=== PATIENT | female | born 1975 | race Caucasian/White ===

== ENCOUNTER → 2016-12-25 | Outpatient (CLI) | payer BC ==
--- NOTE | 2016-12-25 10:25 | XR ---
EXAMINATION TYPE: XR chest 2V DATE OF EXAM: 12/25/2016 COMPARISON: 12/24/2015 TECHNIQUE: PA and lateral views submitted. HISTORY: History of breast cancer FINDINGS: The lungs are clear and there is no pneumothorax, pleural effusion, or focal pneumonia. Biapical pl eural thickening. IMPRESSION: 1. No acute process.
--- NOTE | 2016-12-25 11:19 | MM ---
Reason for exam: additional evaluation requested from prior study. Last mammogram was performed 1 year ago. History: Patient has history of breast cancer at age 37 and is nulliparous. Implant in the right breast, March 2014. Mastectomy of the right breast, 2013. Malignant US RT VAD breast biopsy of the right breast, October 27, 2012. Malignant US RT VAD breast biopsy of the right breast, October 27, 2012. Malignant US RT VAD breast biopsy of the right breast, October 27, 2012. Malignant US RT VAD breast biopsy of the right breast, October 27, 2012. Taking antineoplastic for 1 year. Taking other hormone for 6 months beginning at age 38. Physical Findings: Nurse did not find any significant physical abnormalities on exam. MG 3D Diag Mammo W/Cad LT CC and MLO view(s) were taken of the left breast. Prior study comparison: December 24, 2015, left breast MG 3d diag mammo w/cad LT. December 21, 2014, left breast MG diagnostic mammo LT w CAD. The breast tissue is heterogeneously dense. This may lower the sensitivity of mammography. No suspicious abnormality. No significant new findings when compared with previous films. These results were verbally communicated with the patient and result sheet given to the patient on 12/25/16. ASSESSMENT: Negative, BI-RAD 1 RECOMMENDATION: Follow-up diagnostic mammogram of the left breast in 1 year.
== END | disposition home or self-care (01) ==
LOC: RADMAMWWP 10:08
PROVIDERS: ATTEND Internal Medicine Hematology & Oncology
DX: Z08 Encounter for follow-up examination after completed treatment for malignant neoplasm (principal); Z85.3 Personal history of malignant neoplasm of breast
CPT/HCPCS: 71020; G0206; G0279

== ENCOUNTER → 2017-12-28 | Outpatient (CLI) | payer BC ==
--- NOTE | 2017-12-28 11:36 | MM ---
Reason for exam: additional evaluation requested from prior study. Last mammogram was performed 1 year ago. History: Patient has history of breast cancer at age 37 and is nulliparous. Implant in the right breast, March 2014. Mastectomy of the right breast, 2013. Malignant US RT VAD breast biopsy of the right breast, October 27, 2012. Malignant US RT VAD breast biopsy of the right breast, October 27, 2012. Malignant US RT VAD breast biopsy of the right breast, October 27, 2012. Malignant US RT VAD breast biopsy of the right breast, October 27, 2012. Taking antineoplastic for 1 year. Taking other hormone for 6 months beginning at age 38. Physical Findings: Nurse did not find any significant physical abnormalities on exam. MG 3D Diag Mammo W/Cad LT CC, MLO, ML, and XCCL view(s) were taken of the left breast. Prior study comparison: December 25, 2016, left breast MG 3d diag mammo w/cad LT. December 24, 2015, left breast MG 3d diag mammo w/cad LT. The breast tissue is heterogeneously dense. This may lower the sensitivity of mammography. Asymmetric breast tissue left posterior outer aspect, stable. There is no discrete abnormality. These results were verbally communicated with the patient and result sheet given to the patient on 12/28/17. ASSESSMENT: Benign, BI-RAD 2 RECOMMENDATION: Follow-up diagnostic mammogram of the left breast in 1 year.
== END | disposition home or self-care (01) ==
LOC: RADMAMWWP 10:35
PROVIDERS: ATTEND Internal Medicine Hematology & Oncology
DX: Z08 Encounter for follow-up examination after completed treatment for malignant neoplasm (principal); Z85.3 Personal history of malignant neoplasm of breast
CPT/HCPCS: 77061; 77065

== ENCOUNTER → 2017-12-28 | Outpatient (CLI) | payer BC ==
--- NOTE | 2017-12-28 11:21 | XR ---
EXAMINATION TYPE: XR chest 2V DATE OF EXAM: 12/28/2017 COMPARISON: Prior chest x-ray 12/25/2016 HISTORY: Breast carcinoma TECHNIQUE: Frontal and lateral views of the chest are obtained. FINDINGS: Interval right breast reconstruction change is present. No evident pneumothorax or pleural effusion. Bone mineralization is stable. Cardiomediastinal silhouette, pulmonary vascularity and hil a are unchanged. No airspace disease. Biapical pleural thickening is stable. IMPRESSION: No acute cardiopulmonary process.
== END | disposition home or self-care (01) ==
LOC: RADXRMAIN 10:19
PROVIDERS: ATTEND Internal Medicine Hematology & Oncology
DX: C50.111 Malignant neoplasm of central portion of right female breast (principal); Z17.0 Estrogen receptor positive status [ER+]; N95.8 Other specified menopausal and perimenopausal disorders; Z71.3 Dietary counseling and surveillance
CPT/HCPCS: 71046

== ENCOUNTER → 2018-12-29 | Outpatient (CLI) | payer BC ==
--- NOTE | 2018-12-29 11:07 | XR ---
EXAMINATION TYPE: XR chest 2V DATE OF EXAM: 12/29/2018 COMPARISON: 12/28/2017 TECHNIQUE: PA and lateral views submitted. HISTORY: Breast cancer follow FINDINGS: The lungs are clear and there is no pneumothorax, pleural effusion, or focal pneumonia. Postsurgica l change involving the breast. Biapical pleural stable. IMPRESSION: 1. No acute process.
--- NOTE | 2018-12-30 08:39 | MM ---
Reason for exam: additional evaluation requested from prior study. Last mammogram was performed 1 year ago. History: Patient has history of breast cancer at age 37 and is nulliparous. Breast lift of the left breast, February 2018. Implant in the right breast, March 2014. Mastectomy of the right breast, 2013. Malignant US RT VAD breast biopsy of the right breast, October 27, 2012. Malignant US RT VAD breast biopsy of the right breast, October 27, 2012. Malignant US RT VAD breast biopsy of the right breast, October 27, 2012. Malignant US RT VAD breast biopsy of the right breast, October 27, 2012. Taking antineoplastic for 1 year beginning at age 37. Physical Findings: Nurse did not find any significant physical abnormalities on exam. MG 3D Diag Mammo W/Cad LT CC, MLO, ML, and XCCL view(s) were taken of the left breast. Prior study comparison: December 28, 2017, left breast MG 3d diag mammo w/cad LT. December 25, 2016, left breast MG 3d diag mammo w/cad LT. The breast tissue is heterogeneously dense. This may lower the sensitivity of mammography. No significant new findings when compared with previous films. These results were verbally communicated with the patient and result sheet given to the patient on 12/29/18. ASSESSMENT: Benign, BI-RAD 2 RECOMMENDATION: Follow-up diagnostic mammogram of the left breast in 1 year.
== END | disposition home or self-care (01) ==
LOC: RADMAMWWP 10:34
PROVIDERS: ATTEND Internal Medicine Hematology & Oncology
DX: Z08 Encounter for follow-up examination after completed treatment for malignant neoplasm (principal); N95.8 Other specified menopausal and perimenopausal disorders; Z71.3 Dietary counseling and surveillance; Z85.3 Personal history of malignant neoplasm of breast
CPT/HCPCS: 71046; 77061; 77065

== ENCOUNTER → 2020-01-09 | Outpatient (CLI) | payer BC ==
--- NOTE | 2020-01-09 11:17 | MM ---
Reason for exam: additional evaluation requested from prior study. Last mammogram was performed 1 year ago. History: Patient has history of breast cancer at age 37 and is nulliparous. Breast lift of the left breast, February 2018. Implant in the right breast, March 2014. Mastectomy of the right breast, 2013. Malignant US RT VAD breast biopsy of the right breast, October 27, 2012. Malignant US RT VAD breast biopsy of the right breast, October 27, 2012. Malignant US RT VAD breast biopsy of the right breast, October 27, 2012. Malignant US RT VAD breast biopsy of the right breast, October 27, 2012. Taking tamoxifen. Taking antineoplastic for 1 year beginning at age 37. Physical Findings: Nurse did not find any significant physical abnormalities on exam. MG 3D Diag Mammo W/Cad LT CC, MLO, and XCCL view(s) were taken of the left breast. Prior study comparison: December 29, 2018, left breast MG 3d diag mammo w/cad LT. December 28, 2017, left breast MG 3d diag mammo w/cad LT. The breast tissue is heterogeneously dense. This may lower the sensitivity of mammography. No significant new findings when compared with previous films. These results were verbally communicated with the patient and result sheet given to the patient on 01/09/20. ASSESSMENT: Benign, BI-RAD 2 RECOMMENDATION: Follow-up diagnostic mammogram of the left breast in 1 year.
== END | disposition home or self-care (01) ==
LOC: RADMAMWWP 09:44
PROVIDERS: ATTEND Internal Medicine Hematology & Oncology
DX: Z08 Encounter for follow-up examination after completed treatment for malignant neoplasm (principal); Z85.3 Personal history of malignant neoplasm of breast; Z90.11 Acquired absence of right breast and nipple
CPT/HCPCS: 77061; 77065

== ENCOUNTER → 2020-01-09 | Outpatient (CLI) | payer BC ==
--- NOTE | 2020-01-09 12:15 | XR ---
EXAMINATION TYPE: XR chest 2V DATE OF EXAM: 01/09/2020 COMPARISON: Prior chest x-ray 12/29/2018 HISTORY: History of breast carcinoma, C 50.111, Z 17.0, N 95.8, Z 71.3 TECHNIQUE: Frontal and lateral views of the chest are obtained. FINDINGS: There is no focal air space opacity, pleural effusion, or pneumothorax seen. The cardiac silhouette size is within normal limits. The osseous structures are intact. Patient shows breast pr ostheses. IMPRESSION: No acute cardiopulmonary process.
== END | disposition home or self-care (01) ==
LOC: RADXRMAIN 09:31
PROVIDERS: ATTEND Internal Medicine Hematology & Oncology
DX: C50.111 Malignant neoplasm of central portion of right female breast (principal); N95.8 Other specified menopausal and perimenopausal disorders; Z71.3 Dietary counseling and surveillance; Z71.0 Person encountering health services to consult on behalf of another person
CPT/HCPCS: 71046

== ENCOUNTER → 2021-01-10 | Outpatient (CLI) | payer BC ==
--- NOTE | 2021-01-10 15:58 | XR ---
EXAMINATION TYPE: XR chest 2V DATE OF EXAM: 01/10/2021 COMPARISON: NONE TECHNIQUE: PA and lateral views submitted. HISTORY: Breast cancer FINDINGS: The lungs are clear and there is no pneumothorax, pleural effusion, or focal pneumonia. Heart size n ormal. No overt failure. IMPRESSION: 1. No acute process.
== END | disposition home or self-care (01) ==
LOC: RADXRMAIN 15:38
PROVIDERS: ATTEND Internal Medicine Hematology & Oncology
DX: C50.111 Malignant neoplasm of central portion of right female breast (principal); N95.8 Other specified menopausal and perimenopausal disorders; Z17.0 Estrogen receptor positive status [ER+]; Z71.3 Dietary counseling and surveillance
CPT/HCPCS: 71046

== ENCOUNTER → 2021-01-10 | Outpatient (CLI) | payer BC ==
--- NOTE | 2021-01-11 10:48 | MM ---
Reason for exam: additional evaluation requested from prior study. Last mammogram was performed 1 year ago. History: Patient has history of breast cancer at age 37 and is nulliparous. Breast lift of the left breast, February 2018. Implant in the right breast, March 2014. Mastectomy of the right breast, 2013. Malignant US RT VAD breast biopsy of the right breast, October 27, 2012. Malignant US RT VAD breast biopsy of the right breast, October 27, 2012. Malignant US RT VAD breast biopsy of the right breast, October 27, 2012. Malignant US RT VAD breast biopsy of the right breast, October 27, 2012. Taking tamoxifen. Taking antineoplastic for 1 year beginning at age 37. Physical Findings: Nurse did not find any significant physical abnormalities on exam. MG 3D Diag Mammo W/Cad LT CC and MLO view(s) were taken of the left breast. Prior study comparison: January 09, 2020, left breast MG 3d diag mammo w/cad LT. December 29, 2018, left breast MG 3d diag mammo w/cad LT. December 28, 2017, left breast MG 3d diag mammo w/cad LT. The breast tissue is heterogeneously dense. This may lower the sensitivity of mammography. Upper outer quadrant focal asymmetry is unchanged. Given breast cancer history on the right and dense breast tissue, ultrasound recommended. These results were verbally communicated with the patient and result sheet given to the patient on 01/10/21. ASSESSMENT: Incomplete: need additional imaging evaluation, BI-RAD 0 RECOMMENDATION: Ultrasound of the left breast.
--- NOTE | 2021-01-11 10:49 | USB ---
Reason for exam: additional evaluation requested from abnormal screening. History: Patient has history of breast cancer at age 37 and is nulliparous. Breast lift of the left breast, February 2018. Implant in the right breast, March 2014. Mastectomy of the right breast, 2013. Malignant US RT VAD breast biopsy of the right breast, October 27, 2012. Malignant US RT VAD breast biopsy of the right breast, October 27, 2012. Malignant US RT VAD breast biopsy of the right breast, October 27, 2012. Malignant US RT VAD breast biopsy of the right breast, October 27, 2012. Taking tamoxifen. Taking antineoplastic for 1 year beginning at age 37. US Breast LT Left complete breast ultrasound includes all four quadrants, the retroareolar region and axilla. Finding demonstrates no cystic or solid lesion seen. These results were verbally communicated with the patient and result sheet given to the patient on 01/10/21. ASSESSMENT: Benign, BI-RAD 2 RECOMMENDATION: Follow-up diagnostic mammogram of the left breast in 1 year.
== END | disposition home or self-care (01) ==
LOC: RADMAMWWP 14:27
PROVIDERS: ATTEND Internal Medicine Hematology & Oncology
DX: R92.8 Other abnormal and inconclusive findings on diagnostic imaging of breast (principal); Z85.3 Personal history of malignant neoplasm of breast
CPT/HCPCS: 77061; 77065

== ENCOUNTER → 2022-01-22 | Outpatient (CLI) | payer BC ==
--- NOTE | 2022-01-22 10:02 | MM ---
Reason for Exam: Follow-up at short interval from prior study. Last screening mammogram was performed 12 month(s) ago. Patient History: Menarche at age 15. Patient has no children. Postmenopausal. Breast cancer, right, age 37. Currently using Tamoxifen. 2013, Mastectomy on the Right side. 10/27/2012, Malignant Core Biopsy on the right side. 10/27/2012, Malignant Core Biopsy on the right side. 10/27/2012, Malignant Core Biopsy on the right side. 10/27/2012, Malignant Core Biopsy on the right side. 03/2014, Implant on the right side. Prior Study Comparison: 12/29/2018 Left Diagnostic Mammogram, [facility]. 01/09/2020 Left Diagnostic Mammogram, [facility]. 01/10/2021 Left Diagnostic Mammogram, [facility]. Tissue Density: Left: The breast tissue is heterogeneously dense. This may lower the sensitivity of mammography. Findings: Analyzed By CAD. Upper-outer quadrant focal asymmetry is unchanged. No new suspicious mass or worrisome cluster microcalcifications within the left breast. No significant change from prior exams. Overall Assessment: Benign, BI-RAD 2 Management: Diagnostic Mammogram of the left breast in 1 year. A clinical breast exam by your physician is recommended on an annual basis and results should be correlated with mammographic findings. This exam should not preclude additional follow-up of suspicious palpable abnormalities. Results were given to the patient verbally at the time of exam. Electronically signed and approved by: Tr Philippe D.O.
== END | disposition home or self-care (01) ==
LOC: RADMAMWWP 09:34
PROVIDERS: ATTEND Internal Medicine Hematology & Oncology
DX: Z85.3 Personal history of malignant neoplasm of breast (principal)
CPT/HCPCS: 77061; 77065

== ENCOUNTER → 2023-01-26 | Outpatient (CLI) | payer BC ==
--- NOTE | 2023-01-26 12:48 | MM ---
Reason for Exam: Hx of breast cancer, mastectomy. Last screening mammogram was performed 12 month(s) ago. Patient History: Menarche at age 15. Patient has no children. Postmenopausal. Breast cancer, right, age 37. Currently using Tamoxifen. 2013, Mastectomy on the Right side. 10/27/2012, Malignant Core Biopsy on the right side. 10/27/2012, Malignant Core Biopsy on the right side. 10/27/2012, Malignant Core Biopsy on the right side. 10/27/2012, Malignant Core Biopsy on the right side. 03/2014, Implant on the right side. Prior Study Comparison: 01/09/2020 Left Diagnostic Mammogram, [facility]. 01/10/2021 Left Diagnostic Mammogram, [facility]. 01/22/2022 Left MG 3D diag mammo w/cad , [facility]. Tissue Density: Left: The breast tissue is heterogeneously dense. This may lower the sensitivity of mammography. Findings: Analyzed By CAD. Stable exam. No suspicious findings. Overall Assessment: Benign, BI-RAD 2 Management: Screening Mammogram of the left breast in 1 year. A clinical breast exam by your physician is recommended on an annual basis and results should be correlated with mammographic findings. This exam should not preclude additional follow-up of suspicious palpable abnormalities. Results were given to the patient verbally at the time of exam. Electronically signed and approved by: Emeterio Weiss DO
== END | disposition home or self-care (01) ==
LOC: RADMAMWWP 10:51
PROVIDERS: ATTEND Internal Medicine Hematology & Oncology
DX: R92.332 Mammographic heterogeneous density, left breast (principal); Z90.11 Acquired absence of right breast and nipple; Z78.0 Asymptomatic menopausal state; Z85.3 Personal history of malignant neoplasm of breast
CPT/HCPCS: 77061; 77065

== ENCOUNTER → 2024-02-29 | Outpatient (CLI) | payer BC ==
--- NOTE | 2024-03-01 08:07 | MM ---
Reason for Exam: Screening (asymptomatic). Last mammogram was performed 1 year(s) and 1 month(s) ago. Patient History: Menarche at age 15. Patient has no children. Postmenopausal. Breast cancer, right, age 37. Currently using Tamoxifen. 2013, Mastectomy on the Right side. 10/27/2012, Malignant Core Biopsy on the right side. 10/27/2012, Malignant Core Biopsy on the right side. 10/27/2012, Malignant Core Biopsy on the right side. 10/27/2012, Malignant Core Biopsy on the right side. 03/2014, Implant on the right side. Prior Study Comparison: 01/10/2021 Left Diagnostic Mammogram, [facility]. 01/22/2022 Left MG 3D diag mammo w/cad LT, [facility]. 01/26/2023 Left MG 3D diag mammo w/cad LT, [facility]. Tissue Density: Left: The breasts are extremely dense, which lowers the sensitivity of mammography. Findings: There is no suspicious group of microcalcifications or new suspicious mass in either breast. 9 appearing calcifications. Overall Assessment: Benign, BI-RAD 2 Management: Screening Mammogram of the left breast. . Patient should continue monthly self-breast exams. A clinical breast exam by your physician is recommended on an annual basis. This exam should not preclude additional follow-up of suspicious palpable abnormalities. Note on Rosa scores and lifetime risk: 1. A Rosa score greater than 3% is considered moderate risk. If this is the case, consider specialist referral to assess eligibility for a risk reducing agent. 2. If overall lifetime risk for the development of breast cancer is 20% or higher, the patient may qualify for future screening with alternating mammogram and breast MRI. [facility], , 03/01/2024 8:05 AM. Electronically signed and approved by: Adam Hoover M.D. Radiologis
== END | disposition home or self-care (01) ==
LOC: RADMAMWWP 15:53
PROVIDERS: ATTEND Internal Medicine Hematology & Oncology
DX: Z12.31 Encounter for screening mammogram for malignant neoplasm of breast (principal); Z78.0 Asymptomatic menopausal state; Z90.11 Acquired absence of right breast and nipple; R92.342 Mammographic extreme density, left breast
CPT/HCPCS: 77067

== ENCOUNTER → 2024-03-09 | Outpatient (CLI) | payer BC | END | disposition home or self-care (01) | LOC: RADMAMWWP 14:00 | PROVIDERS: ATTEND Internal Medicine Hematology & Oncology | DX: Z53.9 Procedure and treatment not carried out, unspecified reason (principal) ==